=== PATIENT | female | born 1980 | race Caucasian/White ===

== ENCOUNTER 2023-04-29 13:35 | Emergency (ER) | payer OTHER ==
[~2023-04-29] VITALS: Ht 180.3 cm; Wt 96.0 kg
[2023-04-29 14:07] LABS: Basophils # (auto) 0.1 10 ^3/uL (0-0.2); Basophils % (auto) 0.7 % (0.0-2.0); Eosinophils # (auto) 0.2 10 ^3/uL (0-0.8); Eosinophils % (auto) 2.7 % (0.0-7.0); Hematocrit 43.8 % (36.0-46.0); Lymphocytes # (auto) 2.3 10 ^3/uL (0.4-5.4); Lymphocytes % (auto) 30.8 % (10.0-50.0); Mean Corpuscular Hemoglobin 30.5 pg (28.0-32.0); Mean Corpuscular Hgb Conc. 34.2 g/dL (32.0-36.0); Mean Corpuscular Volume 89.4 fL (80.0-100.0); Monocytes # (auto) 0.7 10 ^3/uL (0-1.3); Monocytes % (auto) 9.3 % (0.0-12.0); Neutrophils # (auto) 4.2 10 ^3/uL (1.6-8.6); Neutrophils % (auto) 56.5 % (37.0-80.0); Nucleated Red Blood Cells % 0.1 %; Red Cell Distribution Width 12.4 % (11.8-14.3); White Blood Cell 7.4 10^3/uL (4.4-10.8)
[2023-04-29 15:01] LABS: Alanine Aminotransferase 28 U/L (7-40); Albumin 4.6 g/dL (3.2-4.8); Alkaline Phosphatase 70 U/L (46-116); Anion Gap 5 (5-15); Aspartate Aminotransferase 20 U/L (13-40); BUN/Creatinine Ratio 9.1 (10.0-20.0); Bilirubin, Total 0.4 mg/dL (0.2-1.0); Blood Urea Nitrogen 7 mg/dL (9-23); Calcium 9.6 mg/dL (8.7-10.4); Carbon Dioxide 30 mmol/L (20-30); Chloride 103 mmol/L (98-107); Glucose 90 mg/dL (74-106); Potassium 3.9 mmol/L (3.5-5.1); Sodium 138 mmol/L (136-145); Total Protein 7.5 g/dL (5.7-8.2)
[2023-04-29 15:37] LABS: Urine Bacteria NONE SEEN /hpf (None Seen); Urine Blood Negative /uL (Negative); Urine Clarity Clear (Clear); Urine Color Colorless (Yellow); Urine Protein, UAD Negative (Negative); Urine Specific Gravity 1.006 (1.001-1.035); Urine Urobilinogen Normal (Negative); Urine WBC 1 /hpf (0 - 5)
[2023-04-29] MEDS ORDERED: PANT40TA2 PO (16:01)
[2023-04-29] MEDS ORDERED: HYDROcodone-ACET 5/325MG TAB PO ONE (16:15)
[2023-04-29] MEDS ORDERED: DONNATAL 5ml ORAL Elix (BELLADONNA ALK-PHENOBARB) PO ONE (16:15)
[2023-04-29] MEDS ORDERED: LIDOCAINE VISCOUS 2% 15ML UD PO ONE (16:15)
[2023-04-29] MEDS ORDERED: MAALOX PLUS or MAALOX 30 ML PO ONE (16:15)
[2023-04-29 18:10] VITALS: BP 130/78; PULSE 79; RESP 16; TEMP 98.6; O2SAT 99
== END 2023-04-29 18:13 | disposition home or self-care (01) ==
LOC: ER 13:35
DX: K29.00 Acute gastritis without bleeding (principal); I10 Essential (primary) hypertension; F17.210 Nicotine dependence, cigarettes, uncomplicated; F15.90 Other stimulant use, unspecified, uncomplicated; Z98.890 Other specified postprocedural states; Z88.8 Allergy status to other drugs, medicaments and biological substances
CPT/HCPCS: 36415; 74176; 80053; 81001; 85025

== ENCOUNTER 2024-02-01 05:30 | Emergency (ER) | payer OTHER ==
[~2024-02-01] VITALS: Ht 180.3 cm; Wt 95.0 kg
[~2024-02-01 05:30] MED LIST: PANT40TA2 PO
[2024-02-01 05:40] VITALS: BP 183/102; PULSE 77; RESP 14; O2SAT 99
== END 2024-02-01 07:49 | disposition left against medical advice (07) ==
LOC: ER 05:30
DX: M79.671 Pain in right foot (principal); Z53.21 Procedure and treatment not carried out due to patient leaving prior to being seen by health care provider
CPT/HCPCS: 73630

== ENCOUNTER 2024-03-09 14:58 | Emergency (ER) | payer OTHER ==
[~2024-03-09] VITALS: Ht 182.9 cm; Wt 94.5 kg
[2024-03-09 15:50] VITALS: BP 170/94; PULSE 86; RESP 18; TEMP 98.1; O2SAT 97
[2024-03-09] MEDS ORDERED: NAPR-746 PO (16:07)
[2024-03-09] MEDS ORDERED: AMOX500T86 PO (16:07)
[2024-03-09] MEDS: IBUPROFEN 800 MG TAB PO ONE (16:12)
== END 2024-03-09 16:17 | disposition home or self-care (01) ==
LOC: ER 14:58
DX: S51.832A Puncture wound without foreign body of left forearm, initial encounter (principal); S51.852A Open bite of left forearm, initial encounter; I10 Essential (primary) hypertension; Z88.1 Allergy status to other antibiotic agents; W54.0XXA Bitten by dog, initial encounter; Y93.89 Activity, other specified; Y92.89 Other specified places as the place of occurrence of the external cause; Y99.8 Other external cause status